=== PATIENT | female | born 1985 | race Caucasian/White ===

== ENCOUNTER 2017-10-29 16:33 | Inpatient (IN) | payer OTHER ==
[~2017-10-29] VITALS: Ht 162.6 cm; Wt 83.7 kg
--- NOTE | ~2017-10-29 | HC ---
[facility] [place] [address] CONSULTATION Name: TON BLANC Room #: 426-P [facility] IN M.R.#: [id number] Admission: 10/29/17 Attend Phys: Dieter Méndez DO Discharge: Date of : 81 Report #: [id number] THIS REPORT FOR: //name// CC: Kary Méndez DATE OF SERVICE: 10/30/2017 ATTENDING PHYSICIAN: Dieter Méndez DO REASON FOR CONSULTATION: Left pyelonephritis. HISTORY OF PRESENT ILLNESS: The patient is a 32-year-old white woman unwell for 3 days or thereabouts, initially evaluated at [facility] walk-in clinic. She was found to have acute urinary tract infection, prescribed Cipro. She failed to respond to Cipro. She continued to run low-grade fevers up to 100 and also developed some significant headaches and persistent left flank pain. At initial evaluation, she was found to have abnormal urinalysis and abnormal CT scan of abdomen and pelvis with chronic changes on the left kidney compatible with previous acute pyelonephritis and scarring. At present, the patient is feeling some better. She had some breakfast. She is on treatment with Rocephin 1 gram IV daily. PAST MEDICAL HISTORY: Tonsillectomy. Previous kidney infection, last one 3-4 years ago. History of some urethral abnormalities that required no surgery. Previous acute pyelonephritis. SOCIAL HISTORY: . No children. Owns a hair salon. REVIEW OF SYSTEMS: Fever. Left flank pain, nausea, vomiting and now headache. PHYSICAL EXAMINATION: GENERAL: A well-developed woman, not toxic looking, no distress. VITAL SIGNS: Temperature maximum since admission 99.6, pulse 84, respirations 18, BP 112/64, height 5 feet 4 inches, weight 184 pounds. HEENMT: Head normocephalic, atraumatic. Pupils reactive. Mouth: No thrush. NECK: Supple, no thyromegaly. BREASTS: Deferred. LUNGS: Clear. HEART: S1, S2. No gallop or murmur. ABDOMEN: Some tenderness in left-sided abdominal quadrants and minor left flank tenderness on percussion. PELVIC AND RECTAL: Deferred. EXTREMITIES: No clubbing, cyanosis. NEUROLOGIC: Grossly within normal limits. [address] [address] CONSULTATION Name: TON BLANC Room #: 426-P [facility] IN .R.#: [id number] Admission: 10/29/17 Attend Phys: Dieter Méndez DO Discharge: Date of : 81 Report #: [id number] LABORATORY DATA: Hypokalemia of 3.4 is corrected today and potassium is 3.7, albumin a bit low at 3.3 g/dL on admission, leukocytosis of 18,300, improved today and white blood cell count is 12,300, hemoglobin from 12.9 g/dL down to 10.8 g/dL, platelets normal. The white blood cell count differential revealed 83% segmented neutrophils yesterday. The urinalysis revealed 3+ ketones, 1+ blood, trace leukocyte esterase. The microscopic exam revealed 6-15 wbc's per HPF and some microscopic hematuria and bacteriuria. MICROBIOLOGY DATA: The cultures obtained in the Emergency Room consisting of urine and blood cultures remain negative so far. ASSESSMENT: 1. Acute left-sided pyelonephritis. 2. History of previous acute urinary tract infection with evidence of scarring of left kidney. 3. Status post tonsillectomy. SUGGESTIONS AND RECOMMENDATIONS: Since the patient is improving on regimen of ceftriaxone 1 gram IV daily, we will most definitely continue with this antibiotic. Hopefully, a urine culture was obtained at the walk-in clinic. We may contact them later in the day to assess urine culture results and try to establish the best oral antibiotic for her urinary tract infection. Duration of treatment pending clinical response, but usually 10-14 days of oral antibiotic will suffice. Dr. Méndez, thank you for requesting my suggestions in the care of your patient. <ELECTRONICALLY SIGNED> By: Ismael Ruelas MD 10/30/17 1226 [id number] Ismael Ruelas MD /nt
[2017-10-29 16:36] VITALS: BP 140/72
[2017-10-29] MEDS ORDERED: CIPRO500 MG PO (16:44)
[2017-10-29 17:07] LABS: HEMATOCRIT 37.9 % (37.0-47.0); HEMOGLOBIN 12.9 gm/dL (12.0-15.0); MCH 30.8 pg (26.0-34.0); MCV 90.8 fL (80.0-100.0); PLATELET COUNT 329 thou/uL (150-400); RBC 4.18 mil/uL (4.20-5.00); RDW 13.3 % (10.5-14.5); WBC 18.3 thou/uL (4.0-11.0)
[2017-10-29 17:18] LABS: CALCIUM 9.7 mg/dL (8.5-10.1); CREATININE 0.9 mg/dL (0.6-1.0); POTASSIUM 3.4 mmol/L (3.5-5.1)
[2017-10-29 17:25] LABS: ALBUMIN 3.3 g/dL (3.4-5.0); TOTAL BILIRUBIN 0.5 mg/dL (<0.1-1.0); TOTAL PROTEIN 7.5 g/dL (6.4-8.2)
[2017-10-29 17:30] LABS: URINE BILIRUBIN NEGATIVE (Negative); URINE BLOOD 1+ (Negative); URINE CLARITY CLEAR; URINE COLOR YELLOW; URINE GLUCOSE-RANDOM* NEGATIVE (Negative); URINE KETONES 3+ (Negative); URINE LEUKOCYTES TRACE (Negative); URINE NITRITE NEGATIVE (Negative); URINE PROTEIN (DIPSTICK) NEGATIVE (Negative)
[2017-10-29 17:35] LABS: ABSOLUTE NEUTROPHILS 15.6 thou/uL (1.4-8.2); ATYPICAL LYMPHS 4 %
[2017-10-29 17:36] LABS: ANISOCYTOSIS 1+; MICROCYTES SLIGHT
[2017-10-29 17:39] LABS: CASTS None Seen /LPF (None Seen); MUCUS 0-3 Light strn/LPF (None Seen); SQUAMOUS >10 Many /LPF (0-3); URINE RBC 3-10 Few /HPF (0-2); URINE WBC 6-15 Few /HPF (0-5)
[2017-10-29 17:40] LABS: CRYSTALS None Seen /LPF (None Seen)
[2017-10-29 18:08] VITALS: BP 135/74
[2017-10-29 19:27] VITALS: BP 131/67
[2017-10-29 20:15] VITALS: BP 127/72
[2017-10-29 23:18] VITALS: BP 124/71
[2017-10-30 03:30] VITALS: BP 117/85
[2017-10-30 06:12] LABS: ABSOLUTE NEUTROPHILS 9.1 thou/uL (1.4-8.2); BASOPHILS 0.8 % (0.0-2.0); EOSINOPHILS 1.4 % (0.0-3.0); HEMATOCRIT 32.3 % (37.0-47.0); LYMPHOCYTES 13.1 % (24.0-44.0); MCH 30.8 pg (26.0-34.0); MCHC 33.4 g/dL (28.0-37.0); MCV 92.2 fL (80.0-100.0); MONOCYTES 11.1 % (1.0-8.0); POLYS 73.6 % (36.0-66.0); RBC 3.51 mil/uL (4.20-5.00); RDW 13.2 % (10.5-14.5); WBC 12.3 thou/uL (4.0-11.0)
[2017-10-30 06:24] LABS: CALCIUM 8.1 mg/dL (8.5-10.1); CREATININE 0.7 mg/dL (0.6-1.0); POTASSIUM 3.7 mmol/L (3.5-5.1)
[2017-10-30 06:28] LABS: HEMOGLOBIN 10.8 gm/dL (12.0-15.0); PLATELET COUNT 250 thou/uL (150-400)
[2017-10-30 06:51] VITALS: BP 112/64
[2017-10-30 16:26] VITALS: BP 963/52
[2017-10-30 20:00] VITALS: BP 99/57
[2017-10-31 04:00] VITALS: BP 97/51
[2017-10-31 06:41] LABS: HEMATOCRIT 32.8 % (37.0-47.0); HEMOGLOBIN 11.2 gm/dL (12.0-15.0); MCH 31.3 pg (26.0-34.0); MCHC 34.3 g/dL (28.0-37.0); MCV 91.3 fL (80.0-100.0); RBC 3.59 mil/uL (4.20-5.00); RDW 13.4 % (10.5-14.5); WBC 9.7 thou/uL (4.0-11.0)
[2017-10-31 06:52] LABS: CALCIUM 8.5 mg/dL (8.5-10.1); CREATININE 0.7 mg/dL (0.6-1.0); POTASSIUM 3.5 mmol/L (3.5-5.1)
[2017-10-31 07:00] VITALS: BP 125/56
[2017-10-31] MEDS ORDERED: TRAMADOL 50 MG50 MG PO (08:49)
[2017-10-31] MEDS ORDERED: KEFLEX500 M1 PO (08:51)
[2017-10-31] MEDS ORDERED: ZOFRAN ODT4 MG PO (08:51)
[2017-10-31 09:08] VITALS: BP 125/56
== END 2017-10-31 13:59 | disposition home or self-care (01) | DRG 872 ==
LOC: ER 16:33 → 4E 17:42 → EROBS 17:42 → 4E 19:24
PROVIDERS: Family Medicine; Hospitalist; Physician Assistant
DX: A41.9 Sepsis, unspecified organism (principal); N10 Acute pyelonephritis; E87.6 Hypokalemia; F12.90 Cannabis use, unspecified, uncomplicated; Z79.899 Other long term (current) drug therapy
CPT/HCPCS: 10084